=== PATIENT | female | born 1995 | race Two or more races ===

== ENCOUNTER 2024-09-17 17:41 | Emergency (ER) | payer OTHER ==
[~2024-09-17] VITALS: Ht 162.6 cm; Wt 68.0 kg
[2024-09-17 18:57] LABS: URINE APPEARANCE Cloudy; URINE BILIRRUBIN Negative (NEGATIVE); URINE BLOOD Large; URINE COLOR Yellow; URINE GLUCOSE Negative (NEGATIVE); URINE KETONE Negative (NEGATIVE); URINE LEUKOCYTE Small; URINE NITRATE Negative; URINE PROTEIN Negative (NEGATIVE); URINE UROBILINOGEN 0.2 E.U./dl
[2024-09-17 18:59] LABS: HEMATOCRIT 38.8 % (36.0-45.00); HEMOGLOBIN 13.2 g/dL (12.0-15.00); MEAN CORPUSCULAR HEMOGLOBIN 32.2 pg (27.00-32.0); MEAN CORPUSCULAR HGB CONC 33.9 g/dl (32.0-36.0); PLATELET COUNT 294 K/uL (150-450); RED BLOOD COUNT 4.08 M/uL (4.00-6.00); RED CELL DISTRIBUTION WIDTH 12.4 % (11.5-14.5)
[2024-09-17 19:01] LABS: URINE BACTERIA 209.2 uL (0.0-1933); URINE EPITHELIAL CELLS 51.9 uL (0.0-38.8); URINE RBC 61.1 uL (0.0-20.8); URINE WBC 29.1 uL (0.0-23.2)
[2024-09-17 19:04] LABS: URINE CAST 0.14 uL (0.0-1.40)
[2024-09-17] MEDS ORDERED: DUI500 PO (20:38)
== END 2024-09-17 21:09 ==
LOC: ER 17:43
PROVIDERS: General Practice
DX: O26.899 Other specified pregnancy related conditions, unspecified trimester (principal); R10.2 Pelvic and perineal pain; O23.30 Infections of other parts of urinary tract in pregnancy, unspecified trimester; N39.0 Urinary tract infection, site not specified

== ENCOUNTER 2024-09-27 07:06 | Emergency (ER) | payer OTHER ==
[~2024-09-27] VITALS: Ht 165.1 cm; Wt 72.6 kg
[~2024-09-27 07:06] MED LIST: DUI500 PO
[2024-09-27 07:59] VITALS: BP 108/74; O2SAT 100
[2024-09-27 09:08] LABS: HEMATOCRIT 41.1 % (36.0-45.00); HEMOGLOBIN 14.3 g/dL (12.0-15.00); MEAN CELL VOLUME 93.8 fL (80.00-100.00); MEAN CORPUSCULAR HEMOGLOBIN 32.6 pg (27.00-32.0); MEAN CORPUSCULAR HGB CONC 34.8 g/dl (32.0-36.0); PLATELET COUNT 290 K/uL (150-450); RED BLOOD COUNT 4.38 M/uL (4.00-6.00)
[2024-09-27 09:11] LABS: URINE APPEARANCE Cloudy; URINE BILIRRUBIN Negative (NEGATIVE); URINE BLOOD Small; URINE COLOR Yellow; URINE GLUCOSE Negative (NEGATIVE); URINE KETONE Negative (NEGATIVE); URINE LEUKOCYTE Moderate; URINE NITRATE Negative; URINE PROTEIN Negative (NEGATIVE); URINE UROBILINOGEN 0.2 E.U./dl
[2024-09-27 09:16] LABS: URINE BACTERIA 1986.5 uL (0.0-1933); URINE EPITHELIAL CELLS 142.4 uL (0.0-38.8); URINE RBC 6.3 uL (0.0-20.8); URINE WBC 47.4 uL (0.0-23.2)
[2024-09-27 09:55] LABS: URINE YEAST FEW /hpf
== END 2024-09-27 13:40 | disposition home or self-care (01) ==
LOC: ER 07:08
PROVIDERS: Emergency Medicine
DX: R10.2 Pelvic and perineal pain (principal); Z33.1 Pregnant state, incidental

== ENCOUNTER 2024-10-18 10:22 | Outpatient (CLI) | payer OTHER | END 2024-10-18 10:27 | disposition home or self-care (01) | LOC: PRENATAL 10:22 | PROVIDERS: ATTEND Obstetrics & Gynecology Maternal & Fetal Medicine | DX: O36.80X0 Pregnancy with inconclusive fetal viability, not applicable or unspecified (principal); O26.859 Spotting complicating pregnancy, unspecified trimester; O34.219 Maternal care for unspecified type scar from previous cesarean delivery; Z3A.08 8 weeks gestation of pregnancy ==

== ENCOUNTER 2024-12-12 08:16 | Emergency (ER) | payer OTHER ==
[~2024-12-12] VITALS: Ht 165.1 cm; Wt 76.2 kg
[2024-12-12 08:24] VITALS: BP 113/77; O2SAT 98
[2024-12-12] MEDS ORDERED: AMOX TR-K250 MG/5 M (08:26)
== END 2024-12-12 09:09 | disposition home or self-care (01) ==
LOC: ER 08:19
DX: O26.892 Other specified pregnancy related conditions, second trimester (principal); Z3A.16 16 weeks gestation of pregnancy; H60.8X1 Other otitis externa, right ear

== ENCOUNTER 2025-02-26 14:22 | Outpatient (CLI) | payer OTHER ==
[~2025-02-26 14:22] MED LIST changes: +AMOX TR-K250 MG/5 M
== END 2025-02-26 14:30 | disposition home or self-care (01) ==
LOC: PRENATAL 14:22
PROVIDERS: ATTEND Obstetrics & Gynecology Maternal & Fetal Medicine
DX: O44.00 Complete placenta previa NOS or without hemorrhage, unspecified trimester (principal); O36.60X0 Maternal care for excessive fetal growth, unspecified trimester, not applicable or unspecified; Z3A.28 28 weeks gestation of pregnancy

== ENCOUNTER → 2025-04-15 | Outpatient (CLI) | payer OTHER | END | disposition home or self-care (01) | LOC: PRENATAL 13:04 | PROVIDERS: ATTEND Obstetrics & Gynecology Maternal & Fetal Medicine | DX: O26.849 Uterine size-date discrepancy, unspecified trimester (principal); O36.8199 Decreased fetal movements, unspecified trimester, other fetus; O36.60X0 Maternal care for excessive fetal growth, unspecified trimester, not applicable or unspecified; Z3A.35 35 weeks gestation of pregnancy ==

== ENCOUNTER 2025-05-13 13:00 | Inpatient (IN) | payer OTHER ==
[~2025-05-13] VITALS: Ht 165.1 cm; Wt 88.9 kg
[2025-05-17] VITALS (8 sets, daily range): BP systolic 109–149; BP diastolic 49–82
[2025-05-17] MEDS ORDERED: RINGERS SOLUTION,LACTATED 1,000 ML IV SCH (05:30)
[2025-05-17 06:44] LABS: BASO % 0.2 % (0.1-1.2); EOS # 0.10 (0.04-0.54); EOS % 0.7 % (0.7-7.0); LYMPH # 2.76 (1.18-3.74); LYMPH % 19.9 % (19.3-53.1); MEAN PLATELET VOLUME 10.70 fl (9.4-12.4); MONO # 1.16 (0.24-0.82); MONO % 8.4 % (4.7-12.5); NEUT # 9.63 (1.56-6.13); NEUT % 69.6 % (34.0-71.1); RED CELL DISTRIBUTION WIDTH 13.0 % (11.6-14.4)
[2025-05-17 06:52] LABS: URINE APPEARANCE Cloudy; URINE BILIRRUBIN Negative (NEGATIVE); URINE BLOOD Negative; URINE COLOR Yellow; URINE GLUCOSE Negative (NEGATIVE); URINE KETONE Trace (NEGATIVE); URINE LEUKOCYTE Moderate; URINE NITRATE Negative; URINE PROTEIN Negative (NEGATIVE); URINE UROBILINOGEN 0.2 E.U./dl
[2025-05-17 06:55] LABS: URINE BACTERIA 3352.8 uL (0.0-1933); URINE EPITHELIAL CELLS 85.3 uL (0.0-38.8); URINE RBC 12.7 uL (0.0-20.8); URINE WBC 234.4 uL (0.0-23.2)
[2025-05-17] MEDS ORDERED: OXYTOCIN 500 ML IV SCH (07:00)
[2025-05-17 07:04] LABS: INR 0.95
[2025-05-17 07:14] LABS: ALT/SGPT 18.0 U/L (12-78); AST/SGOT 13.0 U/L (15-37); BILIRUBIN TOTAL 0.41 mg/dL (0.3-1.2); BUN CREA RATIO 14.0 (7.0-25.0); CREATININE SERUM 0.57 mg/dL (0.55-1.02); GFR 127.23; GLOBULINA 3.9 G/DL (2.4-3.5); GLUCOSE FASTING 72.0 mg/dL (65-100); OSMOLALITY SERUM 273.0 MOSM/KG (275-295)
[2025-05-17 08:06] LABS: URINE CAST 0.58 uL (0.0-1.40); URINE YEAST FEW /hpf
[2025-05-17] MEDS ORDERED: OXYC1TAB9 PO (10:13)
[2025-05-17] MEDS ORDERED: MORPHINE SULFATE 4 MG/ML CARTRIDGE IV STA ×2 (10:46→13:06)
[2025-05-17] MEDS ORDERED: FAMOTIDINE/PF 20 MG in 0.9 % SODIUM CHLORIDE 100 ML IV ONE (13:30)
[2025-05-17] MEDS ORDERED: CARBOPROST TROMETHAMINE 250 MCG/ML AMPUL IM STA ×2 (16:22→16:55)
[2025-05-17] MEDS ORDERED: METHYLERGONOVINE MALEATE 0.2 MG/ML AMPUL IM STA (16:23)
[2025-05-17] MEDS ORDERED: OXYTOCIN 1,000 ML IV SCH (16:30)
[2025-05-17] MEDS ORDERED: ERYTHROMYCIN BASE OPHT 1GM EACH TUBE OP ONE (16:30)
[2025-05-17] MEDS ORDERED: ACETAMINOPHEN 500 MG GEL..CAP PO PRN (16:30)
[2025-05-17] MEDS ORDERED: CHLORHEXIDINE GLUCONATE 120 ML BOTTLE TOP ONE (16:30)
[2025-05-17 23:34] LABS: BASO % 0.1 % (0.1-1.2); EOS # 0.01 (0.04-0.54); EOS % 0.0 % (0.7-7.0); LYMPH # 2.05 (1.18-3.74); LYMPH % 8.8 % (19.3-53.1); MEAN PLATELET VOLUME 10.60 fl (9.4-12.4); MONO # 1.43 (0.24-0.82); MONO % 6.1 % (4.7-12.5); NEUT # 19.66 (1.56-6.13); NEUT % 84.3 % (34.0-71.1); RED CELL DISTRIBUTION WIDTH 12.9 % (11.6-14.4)
[2025-05-18 00:57] VITALS: BP 104/66
[2025-05-18 08:43] VITALS: BP 110/69
[2025-05-18] MEDS ORDERED: BENZOCAINE/MENTHOL 90 ML BOTTLE TOP SCH (09:00)
[2025-05-18] MEDS ORDERED: HYDROCORTISONE 2.5% 30 GM TUBE RECTAL SCH (09:00)
[2025-05-18 14:46] VITALS: BP 107/69
[2025-05-19] VITALS: BP 110/72
[2025-05-19 08:47] VITALS: BP 106/71
== END 2025-05-19 12:17 | disposition home or self-care (01) | DRG 807 ==
LOC: LDR 05-17 05:22 → OB/GYN 05-17 05:22 → LDR 05-17 05:37 → OB/GYN 05-17 19:26
PROVIDERS: ADMIT Specialist; ATTEND Specialist
PROC: 10E0XZZ Delivery of Products of Conception, External Approach (ICD-10-PCS; principal; 2025-05-17)
PROC: 3E033VJ Introduction of Other Hormone into Peripheral Vein, Percutaneous Approach (ICD-10-PCS; 2025-05-17)
PROC: 4A1HXCZ Monitoring of Products of Conception, Cardiac Rate, External Approach (ICD-10-PCS; 2025-05-17)
DX: O80 Encounter for full-term uncomplicated delivery (principal); Z37.0 Single live birth; Z3A.38 38 weeks gestation of pregnancy